=== PATIENT | female | born 1985 | race Hispanic/Latino ===

== ENCOUNTER → 2025-05-27 | Day surgery (SDC) | payer OTHER ==
[~2025-05-27] MED LIST: LIDOCAINE HCL 2% LOCAL INJ 5 ML SDV VIAL INJ ONE; MIDAZOLAM HCL 2 MG/2 ML VIAL ONE; MOUNJARO10 MG/0.5 INJ; PROPOFOL IV EMULSION 10 MG/ML 20 ML VIAL ONE; TURMERIC500 M2 PO
[2025-05-27] MEDS: LACTATED RINGER'S 1,000 ML ONE (09:10)
[2025-05-27 10:18] VITALS: TEMP 98
[2025-05-27 10:50] VITALS: BP 108/66; PULSE 76; RESP 16; O2SAT 100
== END | disposition home or self-care (01) ==
LOC: OR 07:34
PROVIDERS: ATTEND Internal Medicine Gastroenterology
DX: D12.3 Benign neoplasm of transverse colon (principal); K52.89 Other specified noninfective gastroenteritis and colitis; K64.8 Other hemorrhoids; K59.00 Constipation, unspecified; E11.9 Type 2 diabetes mellitus without complications; Z79.85 Long-term (current) use of injectable non-insulin antidiabetic drugs; Z01.818 Encounter for other preprocedural examination
CPT/HCPCS: 45380; 45381; 45384; 81025; J2003; J2250; J2704; J7121